=== PATIENT | female | born 1995 | race Caucasian/White ===

== ENCOUNTER 2019-03-31 02:38 | Emergency (ER) | payer MEDICAID ==
[~2019-03-31] VITALS: Ht 154.9 cm; Wt 45.4 kg
[2019-03-31 03:01] VITALS: BP 114/80
== END 2019-03-31 04:50 | disposition home or self-care (01) ==
LOC: ER 02:43
DX: L03.211 Cellulitis of face (principal); L01.00 Impetigo, unspecified; F17.210 Nicotine dependence, cigarettes, uncomplicated; Z88.2 Allergy status to sulfonamides